=== PATIENT | male | born 1950 | race Caucasian/White ===

== ENCOUNTER 2017-05-26 11:45 | Inpatient (IN) | payer MEDICARE ==
[~2017-05-26] VITALS: Ht 177.8 cm; Wt 87.5 kg
[2017-05-26] VITALS (15 sets, daily range): BP systolic 102–145; BP diastolic 52–88
[~2017-05-26 11:45] MED LIST: CIPRO 500MG TA500 MG PO; FLAGYL500 M1 PO; LORTAB 5/500 501 TAB PO; ZOFRAN ODT4 MG PO
--- OUTSIDE RECORDS SUMMARY | 2017-05-26 12:15 | External Medical Summary Rpt | CCD ---
Demographics Preferred Language Wolof Marital Status Unknown Taoism Affiliation Unknown Race Unknown Ethnic Group Unknown Author Author , TY CRAWFORD Address Unknown Phone Immunization No patient found.
--- OUTSIDE RECORDS SUMMARY | 2017-05-26 12:15 | External Medical Summary Rpt | CCD ---
Demographics Preferred Language Romanian Marital Status Unknown Bahai Affiliation Unknown Race Unknown Ethnic Group Unknown Author Author , TY CRAWFORD Address Unknown Phone Immunization No patient found.
--- OUTSIDE RECORDS SUMMARY | 2017-05-26 12:15 | External Medical Summary Rpt | CCD ---
Author Author , TY Organization TY Address Unknown Phone [email or web address] Purpose Continuity of Care Document - 05-25-2017 through 2016 Results Labs Lab Lab Date Result Refere Interp Status Commen Order Detail nces retati t Range on Amylase ser/plas (05-25-2017 13:19) Amylase = 46 25-115 complet 017 U/L ed ser/chepe 13:19 s Cardiac enzymes (05-25-2017 13:19) Serum = 0.6 0-4.0 complet or 017 U/L ed plasma 13:19 creatin e kinase MB (CK-M Serum = 0.5 0.0-3.6 complet or 017 ng/mL ed plasma 13:19 creatin e kinase MB measu Serum = 79 39-308 complet or 017 U/L ed plasma 13:19 creatin e kinase measure m Serum < 0.02 0.00-0. complet or 017 ng/mL 06 ed plasma 13:19 troponi n i.cardi ac measu Comprehensive metabolic panel (05-25-2017 13:19) Serum = 1.0 1.1-1.8 complet or 017 ed plasma 13:19 albumin /globul in mass ra Serum = 3.3 3.4-5.0 complet or 017 gm/dL ed plasma 13:19 albumin measure ment (mas Serum = 72 46-116 complet or 017 U/L ed plasma 13:19 alkalin e phospha tase ibrahima Serum = 0.6 0.2-1.0 complet or 017 mg/dL ed plasma 13:19 total bilirub in measure m Serum = 15 7-18 complet or 017 mg/dL ed plasma 13:19 urea nitroge n measure men Serum = 8.8 8.5-10. complet or 017 mg/dL 1 ed plasma 13:19 calcium measure ment (mas Serum = 107 98-107 complet or 017 mmoL/L ed plasma 13:19 chlorid e measure ment (mo Carbon = 30 21.0-32 complet dioxide 017 mmoL/L .0 ed 13:19 measure ment Protein = 6.7 6.4-8.2 complet total 017 gm/dL ed ser/chepe 13:19 s ALT = 22 12-78 complet (SGPT) 017 U/L ed ser/chepe 13:19 s Serum = 16 15-37 complet or 017 U/L ed plasma 13:19 asparta te aminotr ansfera Serum = 141 136-145 complet sodium 017 mmoL/L ed measure 13:19 ment Serum = 3.9 3.5-5.1 complet potassi 017 mmoL/L ed um 13:19 measure ment Serum = 103 74-106 complet or 017 mg/dL ed plasma 13:19 glucose measure ment (mas Serum = 3.4 1.3-3.2 complet globuli 017 gm/dL ed n 13:19 measure ment (mass/v olume) Estimat = 97 >60 complet ed 017 ML/MIN ed glomeru 13:19 lar filtrat ion rate (GF Comment: REFERENCE RANGE: >60 ML/MIN/1.73 SQUARE METERS Comment: If this patient is -[place], then multiply the Comment: result by 1.210. Estimat = 112 50-200 complet ion of 017 ML/MIN ed creatin 13:19 ine renal clearan ce Serum = 0.8 0.70-1. complet or 017 mg/dL 30 ed plasma 13:19 creatin ine measure ment ( Lipase measurement (05-25-2017 13:19) Lipase = 87 73-393 complet measure 017 U/L ed ment 13:19 CBC w auto diff (05-25-2017 13:19) Blood = 7.0 4.8-10. complet leukocy 017 K/MM3 8 ed tahira 13:19 count (number /volume ) Automat = 12.3 11.5-17 complet ed 017 % .5 ed erythro 13:19 cyte distrib ution width Red = 5.33 4.6-6.2 complet blood 017 M/mm3 ed cell 13:19 count Blood = 193 142-424 complet platele 017 K/mm3 ed t count 13:19 Automat = 9.2 7.4-10. complet ed 017 fl 4 ed blood 13:19 platele t mean volume ibrahima Kane % = 6.4 % 1.7-9.3 complet 017 ed 13:19 Absolut = 0.5 0.1-1.0 complet e 017 K/mm3 ed monocyt 13:19 e count Automat = 89.1 82.2-97 complet ed 017 fl .8 ed erythro 13:19 cyte mean corpusc ular v Automat = 32.6 31.8-35 complet ed 017 g/dl .4 ed erythro 13:19 cyte mean corpusc ular h Mean = 29.0 27-31.2 complet corpusc 017 pg ed ular 13:19 hemoglo bin (MCH) determ Lymphoc = 21.8 10-50 complet yte 017 % ed count, 13:19 blood, automat ed Absolut = 1.5 0.7-4.5 complet e 017 K/mm3 ed lymphoc 13:19 yte count Blood = 15.5 14.1-18 complet hemoglo 017 g/dL .0 ed bin 13:19 measure ment (mass/v olum Blood = 47.5 42.0-52 complet hematoc 017 % .0 ed rit 13:19 (volume fractio n) Granulo = 68.3 37.0-80 complet cyte 017 % .0 ed percent 13:19 age Blood = 4.8 1.3-8.0 complet granulo 017 K/mm3 ed cytes 13:19 automat ed count (numb Automat = 3.0 % 0.1-12. complet ed 017 0 ed blood 13:19 eosinop hils/10 0 leukocy t Automat 05-25-2 = 0.2 0.0-0.4 complet ed 017 K/mm3 ed blood 13:19 eosinop hil count Baso % 2 = 0.4 % 0.1-2.0 complet 017 ed 13:19 Automat 2 = 0.0 0-0.2 complet ed 017 K/MM3 ed blood 13:19 basophi l count (count/ vo
--- OUTSIDE RECORDS SUMMARY | 2017-05-26 12:15 | External Medical Summary Rpt | CCD ---
Author Author , TY Organization TY Address Unknown Phone [email or web address] Purpose Continuity of Care Document - 05-25-2017 [...] SQUARE METERS Comment: If this patient is -[place], then multiply the Comment: result by 1.210. [...] blood 13:19 platele t mean volume ibrahima [place] % = 6.4 % 1.7-9.3 complet 017 [...]
--- OUTSIDE RECORDS SUMMARY | 2017-05-26 12:15 | External Medical Summary Rpt ---
Author Author [employer], [employer] Organization [employer] Address Unknown Phone Unavailable Results CBC W Auto Differential panel in Blood Observa Value Referen Units Interpr Notes Date tion ce etation Range Basophils 0 - 0.2 K/MM3 Normal No May 25 informati 2016 1:19 [#/volume on in PM ] in source Blood by data Automated count Basophils 0.1 - 2.0 % Normal No May 25 informati 2016 1:19 leukocyte on in PM s in source Blood by data Automated count Eosinophi 0.0 - 0.4 K/mm3 Normal No May 25 ls informati 2016 1:19 [#/volume on in PM ] in source Blood by data Automated count Eosinophi 0.1 - % Normal No May 25 ls/100 12.0 informati 2016 1:19 leukocyte on in PM s in source Blood by data Automated count Granulocy 1.3 - 8.0 K/mm3 Normal No May 25 [place] informati 2016 1:19 [#/volume on in PM ] in source Blood by data Automated count Granulocy 37.0 - % Normal No May 25 [place]/100 80.0 informati 2016 1:19 leukocyte on in PM s in source Blood by data Automated count Hematocri 42.0 - % Normal No May 25 t [Volume 52.0 informati 2016 1:19 on in PM Fraction] source of Blood data Hemoglobi 14.1 - g/dL Normal No May 25 n 18.0 informati 2016 1:19 [Mass/vol on in PM ume] in source Blood data Lymphocyt 0.7 - 4.5 K/mm3 Normal No May 25 es informati 2016 1:19 [#/volume on in PM ] in source Unspecifi data ed specimen by Automated count Lymphocyt 10 - 50 % Normal No May 25 es informati 2016 1:19 [#/volume on in PM ] in source Unspecifi data ed specimen by Automated count Erythrocy 27 - 31.2 pg Normal No May 25 te mean informati 2016 1:19 corpuscul on in PM ar source hemoglobi data n [Entitic mass] Erythrocy 31.8 - g/dl Normal No May 25 te mean 35.4 informati 2016 1:19 corpuscul on in PM ar source hemoglobi data n concentra tion [Mass/vol ume] by Automated count Erythrocy 82.2 - fl Normal No May 25 te mean 97.8 informati 2016 1:19 corpuscul on in PM ar volume source [Entitic data volume] by Automated count Monocytes 0.1 - 1.0 K/mm3 Normal No May 1 informati 2016 1:19 [#/volume on in PM ] in source Blood by data Automated count Monocytes 1.7 - 9.3 % Normal No May 25 / informati 2017 1:19 leukocyte on in PM s in source Blood by data Automated count Platelet 7.4 - fl Normal No May 25 mean 10.4 informati 2016 1:19 volume on in PM [Entitic source volume] data in Blood by Automated count Platelets 142 - 424 K/mm3 Normal No May 1 informati 2016 1:19 [#/volume on in PM ] in source Blood data Erythrocy 4.6 - 6.2 M/mm3 Normal No May 1 [place] informati 2017 1:19 [#/volume on in PM ] in source Amniotic data fluid Erythrocy 11.5 - % Normal No May 25 te 17.5 informati 2016 1:19 distribut on in PM ion width source [Entitic data volume] by Automated count Leukocyte 4.8 - K/MM3 Normal No May 1 s 10.8 informati 2016 1:19 [#/volume on in PM ] in source Blood data
[2017-05-26 12:41] LABS: STOOL OCCULT BLOOD POSITIVE (NEG)
[2017-05-26 12:59] LABS: HEMOGLOBIN 12.2 g/dL (14.1-18.0); LYMPH # 0.8 K/mm3 (0.7-4.5); LYMPH % 10.1 % (10-50)
[2017-05-26 13:13] LABS: BUN 36 mg/dL (7-18); GFR (ESTIMATED) 113 ML/MIN (>60)
--- NOTE | 2017-05-26 13:13 | Emergency Room Report ---
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 DIZZINESS /WEAKNESS HYPOTENSIVE IN ROUTE(SBP 90'S) GIVEN 325ML BOLUS DURING ROUTE. Onset of symptoms date/time:/ or onset unknown for:MEDICAL HX UNKNOWN Treatment Prior to Arrival: GIVEN BOLUS OF FLUIDS IN ROUTE SBP BETTER. 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 N Clinical Suspician of Infection? N Mental Status: 1 - Regular (Normal Baseline) Sepsis Risk:Low Sepsis Risk Have you (or family members/close friends) recently traveled outside the [place]? N If Yes, where/when: Have you had exposure to infectious disease within the past month? N TB? Other? Specify: Patient seen in ER yesterday for epigastric pain, CT and labs normal, d/c home. This AM had one episode of BRBPR and one episode of hematemesis, also bright red. He has crampy abdominal pain, nonradiating. 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 He denies dizziness now but felt lightheaded earlier. He denies any prior GI problems. Has hx appy remotely. ALLERGIES Coded Allergies: No Known Allergies (05/25/17) Home Medications Reported Medications MECLIZINE HCL (Meclizine Hydrochloride) 12.5 MG PO TIDP PRN DIZZINESS Atorvastatin Calcium (Atorvastatin 40MG) 40 MG PO QHS Aspirin (Aspir-Fouzia) 325 MG PO DAILY History Medical History General CAD? No Angina: No NE: No Hypertension? Yes Hyperlipidemia? Yes CHF? No DVT? No PE? No COPD? No Asthma? No Anemia? No GERD? No Gastric ulcers? No GI Bleed? No Hernia? No Thyroid Problems? No Hypothyroidism? No CVA? No Seizures? No Diabetes? No Renal Insuffiency? No End Stage Renal Disease? No UTI? No Stones? No BPH? No GB Disease: No Nephritic Syndrome? No Asplenia? No Hepatitis? No Sickle Cell Disease? No Arthritis? No Migraines? No Cataracts? No Glaucoma? No MRSA? No HIV? No TB? No Anxiety? No Depression? No Cancer? Yes Site: SKIN More? No Immunization Hx DT/Tetanus 1-4 YRS Surgical Hx Previous Surgery?Y APPY Social History Smoking Hx Smoker: Never Smoker Tobacco: No Alcohol Alcohol: No Review of Systems All Other Systems Reviewed and Negative Gastrointestinal see HPI (CT neg yesterday in ER) Physical Exam Vital Signs Vital Signs Date Time Temp Pulse Resp B/P Pulse O2 O2 Flow FiO2 Ox Delivery Rate 05/26 1437 99 05/26 1420 98.9 84 18 119/77 05/26 1337 98.1 95 18 113/65 99 05/26 1221 76 20 117/77 98 05/26 1146 98.1 80 20 112/86 99 General Appearance normal appearance, WD/WN, no apparent distress Eye Exam - bilateral eye normal exam, bilateral eye PERRL, bilateral eye EOMI Neck normal inspection, non-tender, supple, full range of motion Respiratory Status Yes: trachea midline, chest symmetrical, non tender chest. No: respiratory distress, tender on palpation, use of accessory muscles, pain on inspiration, pain on expiration, productive cough, non productive cough. Lung Sounds bilateral: normal breath sounds, lungs clear. 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 Neurologic alert, normal exam, no motor/sensory deficits, oriented x 3 Glascow Coma Scale Glascow Coma Scale Response Value EYE response: 4 Spontaneously 4 MOTOR response: 6 OBEYS 6 VERBAL response: 5 Oriented & Converses 5 Total 15 Skin intact, normal color, warm/dry Medical Decision Making LABS/Meds/Orders Pt receiving controlled substance in ED? No Results/Orders Laboratory Tests 05/26/17 1220: Stool Occult Blood POSITIVE 05/26/17 1203: MCH 29.2 05/26/17 1203: Sodium 142, Potassium 4.6, Chloride 110 H, Carbon Dioxide 27, BUN 36 H, Creatinine 0.7 L, Estimated Creat Clear 128, Estimated GFR (MDRD) 113, Glucose 125 H, Calcium 8.2 L, Total Bilirubin 0.5, AST 10 L, ALT 16, Alkaline Phosphatase 58, Creatine Kinase 37 L, CK-MB (CK-2) Rel Index 1.4, CK and CKMB Interp < 0.5, Troponin I 0.02, Total Protein 5.3 L, Albumin 2.7 L, Globulin 2.6, Albumin/Globulin Ratio 1.0 L, PT 10.9, INR 1.01, APTT 24.0, WBC 7.6, RBC 4.19 L, Hgb 12.2 L, Hct 37.6 L, MCV 89.7, RDW 12.3, Plt Count 183, MPV 9.4, Gran % 85.6 H, Gran # 6.5, Total Counted 100, Lymphocytes % 10.1, Monocytes % 3.7, Eosinophils % 0.4, Basophils % 0.2, Neutrophils 87 H, Lymphocytes (Manual) 9 L, Lymphocytes # 0.8, Monocytes (Manual) 4, Monocytes # 0.3, Eosinophils # 0.0, Basophils # 0.0, Platelet Estimate NORMAL, PUBS MCHC 32.6, Antibody Screen NEGATIVE, Miscellaneous Test POSITIVE Current Medication Orders Sig/Chago Start time Last Medication Dose Route Stop Time Status Admin Epinephrine HCl 0 .STK-MED ONE 05/26 1440 DC .ROUTE Epinephrine HCl 0 .STK-MED ONE 05/26 1437 DC .ROUTE Sodium Chloride 1,000 ML .STK-MED ONE 05/26 1422 DC IV Lactated Ringer's 1,000 ML .STK-MED ONE 05/26 1406 DC IV Sodium Chloride 200 ML .STK-MED ONE 05/26 1347 DC IV Ondansetron HCl 4 MG Q6HP PRN 05/26 1345 AC IV Sodium Chloride 1,000 ML .Q25H 05/26 1345 AC IV Sodium Chloride 10 ML PRN PRN 05/26 1345 AC IV Sodium Chloride 10 ML PRN PRN 05/26 1345 AC IV Ondansetron HCl 4 MG ONCE ONE 05/26 1200 DC 05/26 IV 05/26 1201 1217 Pantoprazole Sodium 40 MG ONCE ONE 05/26 1200 DC 05/26 IV 05/26 1201 1217 Sodium Chloride 10 ML PRN PRN 05/26 1200 AC IV 05/27 1152 Sodium Chloride 10 ML ONCE ONE 05/26 1200 DC 05/26 IV 05/26 1201 1218 Sodium Chloride 1,000 ML .Q1H1M 05/26 1200 DC 05/26 IV 05/26 1300 1219 Sodium Chloride 10 ML PRN PRN 05/26 1200 AC IV 05/27 1152 Pantoprazole Sodium 0 .STK-MED ONE 05/26 1157 DC IV Ondansetron HCl 0 .STK-MED ONE 05/26 1156 DC .ROUTE Orders Procedure Date/time Status CBC WITH AUTO DIFF 05/27 0600 Active BASIC METABOLIC PROFILE 05/27 0600 Active ELECTROCARDIOGRAM REQUEST 05/26 1329 Active Decision to admit 05/26 1326 Active 12 LEAD EKG-CRISTINSON (INITIAL) 05/26 1325 Active PARTIAL THROMBOPLASTIN TIME 05/26 1315 Complete PROTHROMBIN TIME 05/26 1315 Complete STOOL OCCULT BLOOD 05/26 1237 Complete CROSSMATCH 05/26 1203 Complete DIFFERENTIAL-WBC 05/26 1203 Complete IV SALINE LOCK 05/26 1153 Active TYPE FOR CROSSMATCH 05/26 1153 Complete CBC WITH AUTO DIFF 05/26 1153 Complete CARDIAC ENZYMES 05/26 1153 Complete CHEM 12 PROFILE 05/26 1153 Complete BLOOD BANK REQUEST FOR FINNISH RUBBER 05/26 UNK Complete ADMIT PATIENT 05/26 UNK Active PULSE OXIMETRY REQUEST 05/26 UNK Active VITAL SIGNS 05/26 UNK Active 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 of ischemic chgs, no ectopy, normal QRS, normal CO, normal EKG (NSR 68) Consult MD Physician Consult 1 Consult/PCP Dr. Gaviria requesting to go ahead and hang blood. Lab is preparing 2uPRBC's. Time Called 1313 Reason Surgical eval/care Physician Consult 2 Consult/PCP Dr. Dawson in agreement to admit, hang blood emergently; admit now. Time Called [address] Dawson paged at request of Dr. Gaviria. Progress ED Progress Notes Date 05/26/[address] Gaviria in ED at bedside. Departure Departure Time of Disposition 1340 Disposition Still a Patient Clinical Impression Primary Impression: GI bleed Qualifiers: GI bleed type/associated pathology: unspecified gastrointestinal hemorrhage type Qualified Code: K92.2 - Gastrointestinal hemorrhage, unspecified Condition STABLE Referrals Sai Dawson MD (Family) ED Critical Care Critical Care Yes Time spent < 30 min Vital system(s) involved: Shock (Hemorrhagic) I was present at bedside for Coordinating pt's care, During my initial exam, Reviewing lab results, Reviewing old records, Discussing pt condition, For re- examinations at 1957
--- NOTE | 2017-05-26 13:13 | Emergency Room Report ---
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 DIZZINESS /WEAKNESS HYPOTENSIVE IN ROUTE(SBP 90'S) GIVEN 325ML BOLUS DURING ROUTE. Onset of symptoms date/time:/ or onset unknown for:MEDICAL HX UNKNOWN Treatment Prior to Arrival: GIVEN BOLUS OF FLUIDS IN ROUTE SBP BETTER. 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 N Clinical Suspician of Infection? N Mental Status: 1 - Regular (Normal Baseline) Sepsis Risk:Low Sepsis Risk Have you (or family members/close friends) recently traveled outside the [place]? N If Yes, where/when: Have you had exposure to infectious disease within the past month? N TB? Other? Specify: Patient seen in ER yesterday for epigastric pain, CT and labs normal, d/c home. This AM had one episode of BRBPR and one episode of hematemesis, also bright red. He has crampy abdominal pain, nonradiating. He had hypotension per EMS with bolus of NS given [employer] with normalization of BP. He denies dizziness now but felt lightheaded earlier. He denies any prior GI problems. Has hx appy remotely. ALLERGIES Coded Allergies: No Known Allergies (05/25/17) Home Medications Reported Medications MECLIZINE HCL (Meclizine Hydrochloride) 12.5 MG PO TIDP PRN DIZZINESS Atorvastatin Calcium (Atorvastatin 40MG) 40 MG PO QHS Aspirin (Aspir-Fouzia) 325 MG PO DAILY History Medical History General CAD? No Angina: No MD: No Hypertension? Yes Hyperlipidemia? Yes CHF? No DVT? No PE? No COPD? No Asthma? No Anemia? No GERD? No Gastric ulcers? No GI Bleed? No Hernia? No Thyroid Problems? No Hypothyroidism? No CVA? No Seizures? No Diabetes? No Renal Insuffiency? No End Stage Renal Disease? No UTI? No Stones? No BPH? No GB Disease: No Nephritic Syndrome? No Asplenia? No Hepatitis? No Sickle Cell Disease? No Arthritis? No Migraines? No Cataracts? No Glaucoma? No MRSA? No HIV? No TB? No Anxiety? No Depression? No Cancer? Yes Site: SKIN More? No Immunization Hx DT/Tetanus 1-4 YRS Surgical Hx Previous Surgery?Y APPY Social History Smoking Hx Smoker: Never Smoker Tobacco: No Alcohol Alcohol: No Review of Systems All Other Systems Reviewed and Negative Gastrointestinal see HPI (CT neg yesterday in ER) Physical Exam Vital Signs Vital Signs Date Time Temp Pulse Resp B/P Pulse O2 O2 Flow FiO2 Ox Delivery Rate 05/26 1437 99 05/26 1420 98.9 84 18 119/77 05/26 1337 98.1 95 18 113/65 99 05/26 1221 76 20 117/77 98 05/26 1146 98.1 80 20 112/86 99 General Appearance normal appearance, WD/WN, no apparent distress Eye Exam - bilateral eye normal exam, bilateral eye PERRL, bilateral eye EOMI Neck normal inspection, non-tender, supple, full range of motion Respiratory Status Yes: trachea midline, chest symmetrical, non tender chest. No: respiratory distress, tender on palpation, use of accessory muscles, pain on inspiration, pain on expiration, productive cough, non productive cough. Lung Sounds bilateral: normal breath sounds, lungs clear. 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 Neurologic alert, normal exam, no motor/sensory deficits, oriented x 3 Glascow Coma Scale Glascow Coma Scale Response Value EYE response: 4 Spontaneously 4 MOTOR response: 6 OBEYS 6 VERBAL response: 5 Oriented & Converses 5 Total 15 Skin intact, normal color, warm/dry Medical Decision Making LABS/Meds/Orders Pt receiving controlled substance in ED? No Results/Orders Laboratory Tests 05/26/17 1220: Stool Occult Blood POSITIVE 05/26/17 1203: MCH 29.2 05/26/17 1203: Sodium 142, Potassium 4.6, Chloride 110 H, Carbon Dioxide 27, BUN 36 H, Creatinine 0.7 L, Estimated Creat Clear 128, Estimated GFR (MDRD) 113, Glucose 125 H, Calcium 8.2 L, Total Bilirubin 0.5, AST 10 L, ALT 16, Alkaline Phosphatase 58, Creatine Kinase 37 L, CK-MB (CK-2) Rel Index 1.4, CK and CKMB Interp < 0.5, Troponin I 0.02, Total Protein 5.3 L, Albumin 2.7 L, Globulin 2.6, Albumin/Globulin Ratio 1.0 L, PT 10.9, INR 1.01, APTT 24.0, WBC 7.6, RBC 4.19 L, Hgb 12.2 L, Hct 37.6 L, MCV 89.7, RDW 12.3, Plt Count 183, MPV 9.4, Gran % 85.6 H, Gran # 6.5, Total Counted 100, Lymphocytes % 10.1, Monocytes % 3.7, Eosinophils % 0.4, Basophils % 0.2, Neutrophils 87 H, Lymphocytes (Manual) 9 L, Lymphocytes # 0.8, Monocytes (Manual) 4, Monocytes # 0.3, Eosinophils # 0.0, Basophils # 0.0, Platelet Estimate NORMAL, PUBS MCHC 32.6, Antibody Screen NEGATIVE, Miscellaneous Test POSITIVE Current Medication Orders Sig/Chago Start time Last Medication Dose Route Stop Time Status Admin Epinephrine HCl 0 .STK-MED ONE 05/26 1440 DC .ROUTE Epinephrine HCl 0 .STK-MED ONE 05/26 1437 DC .ROUTE Sodium Chloride 1,000 ML .STK-MED ONE 05/26 1422 DC IV Lactated Ringer's 1,000 ML .STK-MED ONE 05/26 1406 DC IV Sodium Chloride 200 ML .STK-MED ONE 05/26 1347 DC IV Ondansetron HCl 4 MG Q6HP PRN 05/26 1345 AC IV Sodium Chloride 1,000 ML .Q25H 05/26 1345 AC IV Sodium Chloride 10 ML PRN PRN 05/26 1345 AC IV Sodium Chloride 10 ML PRN PRN 05/26 1345 AC IV Ondansetron HCl 4 MG ONCE ONE 05/26 1200 DC 05/26 IV 05/26 1201 1217 Pantoprazole Sodium 40 MG ONCE ONE 05/26 1200 DC 05/26 IV 05/26 1201 1217 Sodium Chloride 10 ML PRN PRN 05/26 1200 AC IV 05/27 1152 Sodium Chloride 10 ML ONCE ONE 05/26 1200 DC 05/26 IV 05/26 1201 1218 Sodium Chloride 1,000 ML .Q1H1M 05/26 1200 DC 05/26 IV 05/26 1300 1219 Sodium Chloride 10 ML PRN PRN 05/26 1200 AC IV 05/27 1152 Pantoprazole Sodium 0 .STK-MED ONE 05/26 1157 DC IV Ondansetron HCl 0 .STK-MED ONE 05/26 1156 DC .ROUTE Orders Procedure Date/time Status CBC WITH AUTO DIFF 05/27 0600 Active BASIC METABOLIC PROFILE 05/27 0600 Active ELECTROCARDIOGRAM REQUEST 05/26 1329 Active Decision to admit 05/26 1326 Active 12 LEAD EKG-CRISTINSON (INITIAL) 05/26 1325 Active PARTIAL THROMBOPLASTIN TIME 05/26 1315 Complete PROTHROMBIN TIME 05/26 1315 Complete STOOL OCCULT BLOOD 05/26 1237 Complete CROSSMATCH 05/26 1203 Complete DIFFERENTIAL-WBC 05/26 1203 Complete IV SALINE LOCK 05/26 1153 Active TYPE FOR CROSSMATCH 05/26 1153 Complete CBC WITH AUTO DIFF 05/26 1153 Complete CARDIAC ENZYMES 05/26 1153 Complete CHEM 12 PROFILE 05/26 1153 Complete BLOOD BANK REQUEST FOR RADIOLOGICAL METALLURGIST 05/26 UNK Complete ADMIT PATIENT 05/26 UNK Active PULSE OXIMETRY REQUEST 05/26 UNK Active VITAL SIGNS 05/26 UNK Active TRIALS MANAGER 05/26 UNK Active IV SALINE LOCK 05/26 UNK Active CODE STATUS 05/26 UNK Active BLOOD TRANSFUSION ORDER 05/26 UNK Active PATIENT ACTIVITY ORDER 05/26 UNK Active PHYSICIANS CONSULT 05/26 UNK Active CM/EKG CM/EKG EKG rate, NSR, rhythm, no evid. of ischemic chgs, no ectopy, normal QRS, normal MT, normal EKG (NSR 68) Consult MD Physician Consult 1 Consult/PCP Dr. Gaviria requesting to go ahead and hang blood. Lab is preparing 2uPRBC's. Time Called 1313 Reason Surgical eval/care Physician Consult 2 Consult/PCP Dr. Dawson in agreement to admit, hang blood emergently; admit now. Time Called [address] Dawson paged at request of Dr. Gaviria. Progress ED Progress Notes Date 05/26/[address] Gaviria in ED at bedside. Departure Departure Time of Disposition 1340 Disposition Still a Patient Clinical Impression Primary Impression: GI bleed Qualifiers: GI bleed type/associated pathology: unspecified gastrointestinal hemorrhage type Qualified Code: K92.2 - Gastrointestinal hemorrhage, unspecified Condition STABLE Referrals Sai Dawson MD (Family) ED Critical Care Critical Care Yes Time spent < 30 min Vital system(s) involved: Shock (Hemorrhagic) I was present at bedside for Coordinating pt's care, During my initial exam, Reviewing lab results, Reviewing old records, Discussing pt condition, For re- examinations at 1957
--- OUTSIDE RECORDS SUMMARY | 2017-05-26 13:31 | External Medical Summary Rpt | CCD ---
Author Author , TY Organization TY Address Unknown Phone [email or web address] Purpose Continuity of Care Document - 05-25-2017 through 2016 Results Labs Lab Lab Date Result Refere Interp Status Commen Order Detail nces retati t Range on Fecal occult blood test (05-26-2017 12:20) Stool POSITIV NEG complet occult 017 E ed blood 12:20 POSITIV test on E L first specime Hemoglobin.gastrointestinal [Presence] in Stool (05-26-2017 12:20) Hemoglo POSITIV NEG complet bin.gas 017 E ed trointe 12:20 stinal [Presen ce] in Stool --1st specime n Cardiac enzymes (05-26-2017 12:03) Serum < 0.5 0.0-3.6 complet or 017 ng/mL ed plasma 12:03 creatin e kinase MB measu Serum = 37 39-308 complet or 017 U/L ed plasma 12:03 creatin e kinase measure m Serum = 0.02 0.00-0. complet or 017 ng/mL 06 ed plasma 12:03 troponi n i.cardi ac measu Serum = 1.4 0-4.0 complet or 017 U/L ed plasma 12:03 creatin e kinase MB (CK-M Comprehensive metabolic panel (05-26-2017 12:03) Serum = 1.0 1.1-1.8 complet or 017 ed plasma 12:03 albumin /globul in mass ra Serum = 2.7 3.4-5.0 complet or 017 gm/dL ed plasma 12:03 albumin measure ment (mas Serum = 58 46-116 complet or 017 U/L ed plasma 12:03 alkalin e phospha tase ibrahima Serum = 0.5 0.2-1.0 complet or 017 mg/dL ed plasma 12:03 total bilirub in measure m Serum = 36 7-18 complet or 017 mg/dL ed plasma 12:03 urea nitroge n measure men Serum = 8.2 8.5-10. complet or 017 mg/dL 1 ed plasma 12:03 calcium measure ment (mas Serum = 110 98-107 complet or 017 mmoL/L ed plasma 12:03 chlorid e measure ment (mo Carbon = 27 21.0-32 complet dioxide 017 mmoL/L .0 ed 12:03 measure ment Serum = 0.7 0.70-1. complet or 017 mg/dL 30 ed plasma 12:03 creatin ine measure ment ( Estimat = 128 50-200 complet ion of 017 ML/MIN ed creatin 12:03 ine renal clearan ce Estimat = 113 >60 complet ed 017 ML/MIN ed glomeru 12:03 lar filtrat ion rate (GF Comment: REFERENCE RANGE: >60 ML/MIN/1.73 SQUARE METERS Comment: If this patient is -Malian, then multiply the Comment: result by 1.210. Serum = 2.6 1.3-3.2 complet globuli 017 gm/dL ed n 12:03 measure ment (mass/v olume) Serum = 125 74-106 complet or 017 mg/dL ed plasma 12:03 glucose measure ment (mas Serum = 4.6 3.5-5.1 complet potassi 017 mmoL/L ed um 12:03 measure ment Serum = 142 136-145 complet sodium 017 mmoL/L ed measure 12:03 ment Serum = 10 15-37 complet or 017 U/L ed plasma 12:03 asparta te aminotr ansfera ALT = 16 12-78 complet (SGPT) 017 U/L ed ser/chepe 12:03 s Protein = 5.3 6.4-8.2 complet total 017 gm/dL ed ser/chepe 12:03 s Amylase ser/plas (05-25-2017 13:19) Amylase = 46 [...] SQUARE METERS Comment: If this patient is -Malian, then multiply the Comment: result by 1.210. [...] blood 13:19 platele t mean volume ibrahima [place] % = 6.4 % 1.7-9.3 complet 017 [...] 13:19 eosinop hils/10 0 leukocy t Automat = 0.2 0.0-0.4 complet ed 017 K/mm3 ed blood 13:19 eosinop hil count Baso % = 0.4 % 0.1-2.0 complet 017 ed 13:19 Automat = 0.0 0-0.2 complet ed 017 K/MM3 ed blood 13:19 basophi l count (count/ vo
--- OUTSIDE RECORDS SUMMARY | 2017-05-26 13:31 | External Medical Summary Rpt | CCD ---
Demographics Preferred Language Armenian Marital Status Unknown Roman Catholic Affiliation Unknown Race Unknown Ethnic Group Unknown Author Author , TY CRAWFORD Address Unknown Phone Immunization No patient found.
--- OUTSIDE RECORDS SUMMARY | 2017-05-26 13:31 | External Medical Summary Rpt | CCD ---
Demographics Preferred Language Chinese Marital Status Unknown Zoroastrianism Affiliation Unknown Race Unknown Ethnic Group Unknown Author Author , TY CRAWFORD Address Unknown Phone Immunization No patient found.
--- OUTSIDE RECORDS SUMMARY | 2017-05-26 13:31 | External Medical Summary Rpt | CCD ---
Author Author , TY Organization TY Address Unknown Phone [email or web address] Purpose Continuity of Care Document - 05-25-2017 [...] SQUARE METERS Comment: If this patient is -Libyan, then multiply the Comment: result by 1.210. [...] SQUARE METERS Comment: If this patient is -Libyan, then multiply the Comment: result by 1.210. [...] blood 13:19 platele t mean volume ibrahima [place] % = 6.4 % 1.7-9.3 complet 017 [...]
--- OUTSIDE RECORDS SUMMARY | 2017-05-26 13:32 | External Medical Summary Rpt ---
Author Author TY Hancock, [employer] Organization [employer] Address Unknown Phone Unavailable Results Hemoglobin.gastrointestinal [Presence] in Stool Observa Value Referen Units Interpr Notes Date tion ce etation Range Hemoglo POSITIV NEG No No No May 2 bin.gas E informa informa informa 2017 trointe tion in tion in tion in 12:20 stinal source source source PM [Presen data data data ce] in Stool --1st specime n CBC W Auto Differential panel in Blood Observa Value Referen Units Interpr Notes Date tion ce etation Range Basophils 0 - 0.2 K/MM3 Normal No May 25 informati 2016 1:19 [#/volume on in PM ] in source Blood by data Automated count Basophils 0.1 - 2.0 % Normal No May 1 informati 2016 1:19 leukocyte on in PM [...] 10 - 50 % Normal No May 1 es informati 2017 1:19 [#/volume on in PM [...] Monocytes 1.7 - 9.3 % Normal No Nov 1 /100 informati 2017 1:19 leukocyte on in PM s in source Blood by data Automated count Platelet 7.4 - fl Normal No May 1 mean 10.4 informati 2017 1:19 volume on in PM [Entitic source [...] Erythrocy 11.5 - % Normal No May 1 te 17.5 informati 2016 1:19 distribut on in PM ion width source [Entitic data volume] by Automated count Leukocyte 4.8 - K/MM3 Normal No May 1 s 10.8 informati 2016 1:19 [#/volume on in PM ] in source Blood data
[2017-05-26 13:46] LABS: ABO BLOOD TYPE A
[2017-05-26 13:47] LABS: NEUTROPHILS 87 % (42-76)
[2017-05-26 13:48] LABS: RH BLOOD TYPE POSITIVE
[2017-05-26 13:55] LABS: ANTIHUMAN GLOB CROSSMATCH COMPAT
[2017-05-26] MEDS ORDERED: HCTZ/TRIAMTEREN1 CAP PO ×2 (13:59→14:09)
--- NOTE | 2017-05-26 14:08 | CONSULT NOTE ---
Standard Demographics Patient Demo Date of Consultation: 05/26/17 Referring Provider: Luba Dawson MD Reason for Consultation: GI bleed PRIMARY DIAGNOSIS: Upper gastrointestinal hemorrhage Allergies: Coded Allergies: No Known Allergies (05/25/17) History of Present Illness Chief Complaint: bloody emesis History of Present Illness: This is a 67yo male seen in consultation after presenting to the ED with melena and hematemesis. He initially presented yesterday to the ED with vague abdominal pain. Evaluation revealed no definitive abnormality and he was discharged home. He returned today with the above-stated symptoms. He currently "feels OK". No history of PUD. No nausea or emesis prior to this episode. Past Medical History Reports: hypertension. Denies: CAD, congestive heart failure, COPD, peptic ulcer disease, asthma, diabetes mellitus. Surgical History Previous Surgery?Y APPY Allergies Coded Allergies: No Known Allergies (05/25/17) Medications: Active Scripts Acetaminophen W/ Hydrocodone (Lortab 5/500) 1-2 TAB PO Q4-6H PRN #10 Prov: 02/06/08 Ciprofloxacin HCl (Cipro 500MG TAB) 500 MG PO BID #20 TAB Prov: 05/25/17 Metronidazole (Flagyl) 500 MG PO TID #30 TAB Prov: 05/25/17 Ondansetron (Zofran 4MG Odt) 4 MG PO Q8HP PRN NAUSEA AND VOMITING #10 ODT Prov: 05/25/17 Additional medical history: hypercholesterolemia Family history Negative for: CAD, HTN, cancer. Smoking Hx Tobacco: No Smoker: Never Smoker Type: N/A Packs/day: N/A Are you/the child exposed to second-hand smoke: No Alcohol Alcohol: No Hx of Drug Use Drug Use? No Review of Systems Constitutional No: recent weight loss. Skin No: bruising. Immune/allergy No: anaphalaxis. Eyes No: blurry vision. ENT No: nose bleed. Respiratory No: pneumonia. Cardiovascular No: palpitations. GI Positive for: hematemeis, melena. No: dysphagia, rectal pain. (male) No: hematuria. Heme No: petechia. Endocrine No: polydipsia. Neurological No: change in LOC. Psychiatric No: anxious. Physical Exam VS/I&O Vital Signs Date Time Temp Pulse Resp B/P Pulse O2 O2 Flow FiO2 Ox Delivery Rate 05/26 1337 98.1 95 18 113/65 99 05/26 1221 76 20 117/77 98 05/26 1146 98.1 80 20 112/86 99 Exam General appearance no acute distress Respiratory no distress Cardiovascular regular rate and rhythm Abdomen soft Plan Plan: Impression: Hematemesis Melena Plan: PPI EGD at 1407
[2017-05-26] MEDS ORDERED: ATORVASTATIN 4040 MG PO (14:10)
[2017-05-26] MEDS ORDERED: MECLIZINE HYD12.5 MG PO (14:10)
[2017-05-26] MEDS ORDERED: MASON NATURAL100 MG PO (14:10)
[2017-05-26] MEDS ORDERED: SLO NIACIN500 MG PO (14:10)
[2017-05-26] MEDS ORDERED: ADULT LOW DOSE81 MG PO (14:11)
[2017-05-26] MEDS ORDERED: ALLEGRA ALLERG180 MG PO (14:11)
[2017-05-26] MEDS ORDERED: FLONASE 50 MCG16 GM (14:11)
--- NOTE | 2017-05-26 14:20 | HISTORY AND PHYSICAL REPORT ---
History and Physical ([facility]) Date of admission: 05/26/17 Chief complaint: Abdominal pain, vomiting blood, blood in stool History: History of Present Illness: Mr. Stuart is a 67yo male who was seen in the ER yesterday for epigastric pain. CT and labs were normal and he was sent home. This morning he had one episode of bright red blood in the stool and one episode of hematemesis, also bright red. He had crampy abdominal pain, nonradiating. EMS was called. 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 He denied dizziness once he arrived at the ER but felt lightheaded. He denies any prior GI problems. He was admitted for a surgical consult. Past Medical History: Medical History: CAD? No Angina: No UT: No Hypertension? Yes Hyperlipidemia? Yes CHF? No DVT? No PE? No COPD? No Asthma? No Anemia? No GERD? No Gastric ulcers? No GI Bleed? No Hernia? No Thyroid Problems? No Hypothyroidism? No CVA? No Seizures? No Diabetes? No Renal Insuffiency? No UTI? No Stones? No BPH? No GB Disease: No Nephritic Syndrome? No Asplenia? No Hepatitis? No Sickle Cell Disease? No Arthritis? No Migraines? No Cataracts? No Glaucoma? No MRSA? No HIV? No TB? No Anxiety? No Depression? No Cancer? Yes Site: SKIN More? No Additional hx: 1. Allergic Rhinitis Surgical history: Previous Surgery?Y APPY KNEE C-SCOPE MALIGNANT MELANOMA RUQ Medications: Reported Medications MECLIZINE HCL (Meclizine Hydrochloride) 12.5 MG PO TIDP PRN DIZZINESS Atorvastatin Calcium (Atorvastatin 40MG) 40 MG PO QHS Aspirin (Aspir-Fouzia) 325 MG PO DAILY Allergies: Coded Allergies: No Known Allergies (05/25/17) Family History: Family history: Postive for: cancer. Negative for: CAD, DM, HTN, stroke. Social History: Smoking Hx Tobacco: No Smoker: Never Smoker Type: N/A Packs/day: N/A Are you exposed to second hand No Alcohol: Alcohol: No Hx of Drug Use: Drug Use? No Review of Systems: Constitutional Positive for: fatigue, lethargy, malaise, weak. ENT Positive for: nasal congestion. No: sore throat. Cardiovascular No: chest pain, edema, palpitations. Respiratory No: shortness of air, productive cough (sputum), wheezing. GI Positive for: abdominal pain, hematemeis, melena, vomitting. (male) No: frequency, hematuria. Neurological Positive for: light headed. No: dizziness, syncope, weakness. Musculoskeletal No: extremity pain, joint pain, myalgias. Physical Exam: Vital signs: 1ST Vital Signs Result Date Time Pulse Ox 99 05/26 114 B/P 112/86 05/26 114 Temp 98.1 05/26 114 Pulse 80 05/26 1146 Resp 20 05/26 114 Exam: General appearance: alert, awake, no acute distress Eyes: EOM's w/normal ROM, PERRLA ENT: mucous membranes moist, nose normal, pharynx normal Neck: non-tender, full range of motion, supple Cardiovascular: regular rate & rhythm Respiratory: clear to auscultation ABD: non-distended, normal bowel sounds, no rebound, soft, no guarding, ttp in the epigastric area Extremities: no peripheral edema Musculoskeletal: equal muscle strength, motor intact, sensation intact Skin: normal color Neuro: normal mood/affect, oriented, speech clear Lab data: Labs: Laboratory Tests 05/26/17 1220: Stool Occult Blood POSITIVE 05/26/17 1203: MCH 29.2 05/26/17 1203: Sodium 142, Potassium 4.6, Chloride 110 H, Carbon Dioxide 27, BUN 36 H, Creatinine 0.7 L, Estimated Creat Clear 128, Estimated GFR (MDRD) 113, Glucose 125 H, Calcium 8.2 L, Total Bilirubin 0.5, AST 10 L, ALT 16, Alkaline Phosphatase 58, Creatine Kinase 37 L, CK-MB (CK-2) Rel Index 1.4, CK and CKMB Interp < 0.5, Troponin I 0.02, Total Protein 5.3 L, Albumin 2.7 L, Globulin 2.6, Albumin/Globulin Ratio 1.0 L, WBC 7.6, RBC 4.19 L, Hgb 12.2 L, Hct 37.6 L, MCV 89.7, RDW 12.3, Plt Count 183, MPV 9.4, Gran % 85.6 H, Gran # 6.5, Total Counted 100, Lymphocytes % 10.1, Monocytes % 3.7, Eosinophils % 0.4, Basophils % 0.2, Neutrophils 87 H, Lymphocytes (Manual) 9 L, Lymphocytes # 0.8, Monocytes (Manual) 4, Monocytes # 0.3, Eosinophils # 0.0, Basophils # 0.0, Platelet Estimate NORMAL, PUBS MCHC 32.6, Antibody Screen NEGATIVE, Miscellaneous Test POSITIVE Radiology results: Results: CXR pending CT from 05/25/17 1. Mild thickening of the descending and sigmoid colon. This may be related to nondistention or mild colitis Diagnosis(es): 1. GI bleed 2. Abdominal pain, acute, epigastric 3. Colitis 4. Stomach ulcer Plan: Patient has been seen by Dr. Gaviria who performed an EGD showing a large ulcer in the antrum. It was not actively bleeding but had been bleeding so he took biopsies and injected it with epi. He started him on carafate, protonix, and clear liquids. He will continue to follow patient. at 1269
--- NOTE | 2017-05-26 15:01 | Operative Note ---
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 Monitored anesthesia care ensued after he was transferred to the LEFT lateral decubitus position. The gastroscope was advanced. The stomach was entered. A small to moderate amount of old blood was noted throughout the gastric lumen. No sign of active bleeding or "fresh blood" was seen. A large crater ulcer within the gastric antrum was visualized. No visible vessel or ongoing hemorrhage was seen. Some clot was noted within the base and a fairly large amount of fibrinous exudate was seen. Biopsies along the ridge/margin were obtained. 10 mL of epinephrine was then injected in multiple quadrants around the crater ulcer. Prior to this maneuver, the pylorus was intubated. No duodenal ulcerations were seen. The gastroscope was carefully removed and the patient was transferred to recovery. EBL (ml): 1 Anesthesia: Monitored anesthesia care Complications: No immediate Specimens: Antral ulcer biopsies Disposition Disposition: Stable to recovery from where he will be transferred back to the floor. at 1500
[2017-05-26] MEDS ORDERED: ASPIR-TRIN325 MG PO (15:36)
--- NOTE | 2017-05-26 16:32 | RADIOLOGY REPORT PS360 ---
CHEST-PORTABLE HISTORY: GI bleed pre op GI bleed ORDERING PHYSICIAN: Sai Dawson MD PATIENT AGE: 67 years COMPARISON: None available FINDINGS: The cardiomediastinal silhouette and pulmonary vascularity are within normal limits. The lungs are clear without infiltrates, suspicious nodules, or pleural effusions. No acute bony abnormalities. IMPRESSION: Negative chest, no acute finding
[2017-05-27 03:33] VITALS: BP 117/64
--- NOTE | 2017-05-27 06:35 | SURGEON PROGRESS NOTE ---
Subjective data Subjective data: Resting Objective data Vitals,I&O,and Labs: Vital signs, intake and output,and available lab data for the last 24 hours is as noted below. Vital Signs Date Time Temp Pulse Resp B/P Pulse O2 O2 Flow FiO2 Ox Delivery Rate 05/27 0333 98.0 71 18 117/64 94 ROOM AIR 05/26 2337 98.4 75 20 104/66 95 ROOM AIR 05/26 2139 99.1 71 20 109/67 96 05/26 1935 99.1 71 20 111/63 97 05/26 1835 98.7 83 18 109/67 96 05/26 1735 98.6 64 18 122/77 98 05/26 1705 98.6 69 18 123/63 96 05/26 1635 98.6 71 18 116/75 95 05/26 1620 98.5 66 18 130/75 99 05/26 1605 98.5 58 18 128/52 99 05/26 1551 98.4 55 18 145/79 97 ROOM AIR 05/26 1550 98.4 61 18 102/88 05/26 1550 98.4 61 18 102/88 98 05/26 1535 98.4 55 18 145/79 97 05/26 1535 98.4 55 18 145/79 97 05/26 1512 55 16 144/82 05/26 1511 57 16 145/77 05/26 1501 98.0 56 16 140/79 96 OXYGEN 05/26 1450 98.9 65 16 136/61 05/26 1437 99 05/26 1420 98.9 84 18 119/77 05/26 1337 98.1 95 18 113/65 99 05/26 1221 76 20 117/77 98 05/26 1146 98.1 80 20 112/86 99 05/26 1500 05/26 2300 05/27 0700 Intake Total 350 1944.7 231 Output Total Balance 350 1944.7 231 Intake, IV 350 804.7 231 Intake, Oral 1140 Output, Stool Patient 86.184 kg 87.544 kg Weight Laboratory Tests Test Result Date Time Chemistry Sodium (mmoL/L) 142 05/26 1203 Potassium (mmoL/L) 4.6 05/26 1203 Chloride (mmoL/L) 110 05/26 1203 Carbon Dioxide (mmoL/L) 27 05/26 1203 BUN (mg/dL) 36 11/02 1203 Creatinine (mg/dL) 0.7 05/26 1203 Estimated Creat Clear (ML/MIN) 128 05/26 1203 Estimated GFR (MDRD) (ML/MIN) 113 05/26 1203 Glucose (mg/dL) 125 05/26 1203 Calcium (mg/dL) 8.2 05/26 1203 Total Bilirubin (mg/dL) 0.5 05/26 1203 AST (U/L) 10 05/26 120 ALT (U/L) 16 05/26 1203 Alkaline Phosphatase (U/L) 58 05/26 1203 Creatine Kinase (U/L) 37 05/26 1203 CK-MB (CK-2) Rel Index (U/L) 1.4 05/26 1203 CK and CKMB Interp (ng/mL) < 0.5 05/26 1203 Troponin I (ng/mL) 0.02 05/26 1203 Total Protein (gm/dL) 5.3 05/26 1203 Albumin (gm/dL) 2.7 05/26 1203 Globulin (gm/dL) 2.6 05/26 1203 Albumin/Globulin Ratio 1.0 05/26 1203 Coagulation PT (SECONDS) 10.9 05/26 1203 INR 1.01 05/26 1203 APTT (SECONDS) 24.0 05/26 1203 Hematology WBC (K/MM3) 7.6 05/26 1203 RBC (M/mm3) 4.19 05/26 1203 Hgb (g/dL) 12.0 05/26 2058 Hct (%) 35.1 05/26 2058 MCV (fl) 89.7 05/26 1203 RDW (%) 12.3 05/26 1203 Plt Count (K/mm3) 183 05/26 1203 MPV (fl) 9.4 05/26 1203 Gran % (%) 85.6 05/26 1203 Gran # (K/mm3) 6.5 05/26 1203 Total Counted (#CELLS) 100 05/26 1203 Lymphocytes % (%) 10.1 05/26 1203 Monocytes % (%) 3.7 05/26 1203 Eosinophils % (%) 0.4 05/26 1203 Basophils % (%) 0.2 05/26 1203 Neutrophils (%) 87 11/02 1203 Lymphocytes (Manual) (%) 9 05/26 1203 Lymphocytes # (K/mm3) 0.8 05/26 120 Monocytes (Manual) (%) 4 05/26 120 Monocytes # (K/mm3) 0.3 05/26 120 Eosinophils # (K/mm3) 0.0 05/26 120 Basophils # (K/MM3) 0.0 05/26 120 Platelet Estimate NORMAL 05/26 1203 PUBS MCHC (g/dl) 32.6 05/26 120 Immunology Antibody Screen NEGATIVE 05/26 1203 MCH (pg) 29.2 05/26 1203 Miscellaneous Miscellaneous Test POSITIVE 05/26 120 Misc Test Units BLOOD UNIT RELEASE 05/26 193 Other Body Source Stool Occult Blood POSITIVE 05/26 1220 Assessment findings Assessment Exam General appearance: no acute distress Cardiovascular: regular rate & rhythm Respiratory: no respiratory distress Patient plan Diagnoses: Antral ulcer with recent hemorrhage - hemodynamically stable with no sign of ongoing blood loss Plan: continue Carafate, continue proton pump inhibitor Additional data: Continue clear liquids today and possibly advance to full liquids tomorrow if he shows no sign of recurrent bleeding. at 0634
[2017-05-27 06:43] LABS: HEMOGLOBIN 11.5 g/dL (14.1-18.0); LYMPH # 1.6 K/mm3 (0.7-4.5); LYMPH % 21.8 % (10-50)
--- NOTE | 2017-05-27 07:23 | PHARMACY CLINIC NOTE ---
Patient Demographics Patient Demographics Admission date: 05/26/17 Date: 05/27/17 Time: 721 Allergies Coded Allergies: No Known Allergies (05/25/17) HEIGHT- FT: 5 IN: 10.00 K.544 VTE General Information Labs: Laboratory Tests 05/278 1203 Coagulation PT (9.4 - 11.8 SECONDS) 10.9 INR (0.9 - 1.1) 1.01 APTT (23.6 - 34.0 SECONDS) 24.0 Hematology Hgb (14.1 - 18.0 g/dL) 11.5 L 12.0 L 12.2 L Hct (42.0 - 52.0 %) 34.7 L 35.1 L 37.6 L Plt Count (142 - 424 K/mm3) 163 183 Disclaimer The following section includes nursing documentation that has been pulled in for pharmacy review. Patient's VTE score: 2 Patient's VTE Risk: VERY LOW RISK VTE prophylaxis [id number] VTE prophylaxis ordered? Yes Type of prophylaxis/treatment: BELL at 0722
[2017-05-27 08:00] VITALS: BP 110/60
--- NOTE | 2017-05-27 08:42 | ACUTE CARE PROGRESS NOTE (QUA) ---
Progress Notes Subjective Date 05/27/17 Time 0838 Note Patient is feeling much better today. He states his abdominal pain has resolved. He has had no vomiting or diarrhea. Surgery is following. Objective Findings Last VS-Temp:98.9 B/P:110/60 Pulse:68 Resp:20 SaO2:97 ROOM AIR Last weight lbs:193 oz:0 K.544 Method:Bed Scales Laboratory Tests 05/27/17 0606: Sodium 143, Potassium 3.4 L, Chloride 112 H, Carbon Dioxide 26, BUN 23 H, Creatinine 0.6 L, Estimated Creat Clear 152, Estimated GFR (MDRD) 135, Glucose 105, Calcium 8.1 L, WBC 7.5, RBC 3.87 L, Hgb 11.5 L, Hct 34.7 L, MCV 89.5, RDW 12.7, Plt Count 163, MPV 9.4, Gran % 71.0, Gran # 5.3, Lymphocytes % 21.8, Monocytes % 6.1, Eosinophils % 0.9, Basophils % 0.2, Lymphocytes # 1.6, Monocytes # 0.5, Eosinophils # 0.1, Basophils # 0.0, PUBS MCHC 33.2, MCH 29.7 05/26/172057: Hgb 12.0 L, Hct 35.1 L 05/26/17 1938: [facility] Test Units BLOOD UNIT RELEASE 05/26/17 1220: Stool Occult Blood POSITIVE 05/26/17 1203: MCH 29.2 05/26/17 1203: Sodium 142, Potassium 4.6, Chloride 110 H, Carbon Dioxide 27, BUN 36 H, Creatinine 0.7 L, Estimated Creat Clear 128, Estimated GFR (MDRD) 113, Glucose 125 H, Calcium 8.2 L, Total Bilirubin 0.5, AST 10 L, ALT 16, Alkaline Phosphatase 58, Creatine Kinase 37 L, CK-MB (CK-2) Rel Index 1.4, CK and CKMB Interp < 0.5, Troponin I 0.02, Total Protein 5.3 L, Albumin 2.7 L, Globulin 2.6, Albumin/Globulin Ratio 1.0 L, PT 10.9, INR 1.01, APTT 24.0, WBC 7.6, RBC 4.19 L, Hgb 12.2 L, Hct 37.6 L, MCV 89.7, RDW 12.3, Plt Count 183, MPV 9.4, Gran % 85.6 H, Gran # 6.5, Total Counted 100, Lymphocytes % 10.1, Monocytes % 3.7, Eosinophils % 0.4, Basophils % 0.2, Neutrophils 87 H, Lymphocytes (Manual) 9 L, Lymphocytes # 0.8, Monocytes (Manual) 4, Monocytes # 0.3, Eosinophils # 0.0, Basophils # 0.0, Platelet Estimate NORMAL, PUBS MCHC 32.6, Antibody Screen NEGATIVE, Miscellaneous Test POSITIVE Exam General appearance: alert, awake, no acute distress Cardiovascular: regular rate & rhythm Respiratory: clear to auscultation ABD: non-distended, normal bowel sounds, no rebound, soft, no tenderness, no guarding Extremities: no peripheral edema Assessment/Plan Problem List 1. GI bleed 2. Abdominal pain, acute, epigastric 3. Colitis 4. Stomach ulcer 5. Hypokalemia Plan: Patient improving. Surgery to follow. Will advance his diet today. Will start on potassium. This inpt stay is expected to cross 2 MNs from start of care Yes at 0841
[2017-05-27] MEDS ORDERED: HCTZ/TRIAMTEREN1 CAP PO (09:28)
[2017-05-27] MEDS ORDERED: GOOD NEIGHBOR100 M6 PO (09:30)
[2017-05-27 12:00] VITALS: BP 106/64
[2017-05-27 14:33] LABS: HEMOGLOBIN 11.2 g/dL (14.1-18.0)
[2017-05-27 16:00] VITALS: BP 100/61
[2017-05-27 19:58] VITALS: BP 113/66
[2017-05-27 20:15] VITALS: BP 113/66
[2017-05-28 01:03] VITALS: BP 99/55
[2017-05-28 04:12] VITALS: BP 102/56
[2017-05-28 07:02] LABS: HEMOGLOBIN 10.7 g/dL (14.1-18.0); LYMPH # 1.4 K/mm3 (0.7-4.5); LYMPH % 24.5 % (10-50)
[2017-05-28 07:57] VITALS: BP 105/63
[2017-05-28 08:44] VITALS: BP 105/63
[2017-05-28] MEDS ORDERED: K-DUR 20MEQ TA20 MEQ PO (09:08)
[2017-05-28] MEDS ORDERED: CARAFATE1 GM PO (09:10)
[2017-05-28] MEDS ORDERED: OMEPRAZOLE40 MG PO (09:12)
[2017-05-28] MEDS ORDERED: FERROUS SULFAT325 M1 PO (09:14)
--- NOTE | 2017-05-28 09:22 | ACUTE CARE PROGRESS NOTE (QUA) ---
Progress Notes Subjective Date 05/28/17 Time 0917 Note Mr. Stuart is stable and ready for discharge this morning. He has had a slight decline in H and H but this is to be expected. He continues with dark stools, this also to be expected. His vital signs are stable. It is noted that his H. pylori antibody was negative. He will be discharged today on omeprazole, ferrous sulfate, sucralfate in addition to his other medications. He will be seen in follow-up next week in [facility]. Objective Findings Laboratory Tests 05/28/17 0609: Sodium 142, Potassium 3.6, Chloride 109 H, Carbon Dioxide 27, BUN 15, Creatinine 0.6 L, Estimated Creat Clear 152, Estimated GFR (MDRD) 135, Glucose 96, Calcium 8.2 L, WBC 5.9, RBC 3.66 L, Hgb 10.7 L, Hct 32.8 L, MCV 89.6, RDW 12.7, Plt Count 156, MPV 9.0, Gran % 65.3, Gran # 3.8, Lymphocytes % 24.5, Monocytes % 5.9, Eosinophils % 4.0, Basophils % 0.2, Lymphocytes # 1.4, Monocytes # 0.4, Eosinophils # 0.2, Basophils # 0.0, PUBS MCHC 32.5, MCH 29.1 05/27/17 1405: Hgb 11.2 L, Hct 33.9 L Last VS-Temp:98.2 B/P:105/63 Pulse:69 Resp:20 SaO2:97 ROOM AIR Last weight lbs:193 oz:0 K.544 Method:Bed Scales Exam General appearance: alert, no acute distress Eyes: anicteric, PERRLA ENT: mucous membranes moist Cardiovascular: regular rate & rhythm Respiratory: clear to auscultation, good air movement ABD: soft, no tenderness, no organomegaly Extremities: no peripheral edema Musculoskeletal: equal muscle strength Skin: dry, intact Neuro: alert, intact, no deficit Reviewed: medications, vital signs, lab results, consult note Assessment/Plan Problem List 1. GI bleed 2. Abdominal pain, acute, epigastric 3. Stomach ulcer 4. Hypokalemia Patient condition Stable Plan: initiate discharge plan This inpt stay is expected to cross 2 MNs from start of care Yes at 0698
[2017-05-28 10:22] VITALS: BP 105/63
--- NOTE | 2017-05-30 21:28 | DISCHARGE SUMMARY STANDARD ---
Discharge Summary ([facility]2) Date of admission: 05/26/17 Date of discharge: 05/28/17 Problem List: 1. GI bleed 2. Abdominal pain, acute, epigastric 3. Stomach ulcer 4. Hypokalemia History of present illness: Mr. Stuart is a 67yo male who was seen in the ER the day prior to admission for epigastric pain. CT and labs were normal and he was sent home. The next morning he had one episode of bright red blood in the stool and one episode of hematemesis, also bright red. He had crampy abdominal pain, nonradiating. EMS was called. 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 He denied dizziness once he arrived at the ER but felt lightheaded. He denied any prior GI problems. He was admitted for a surgical consult. Exam on admission: General appearance: alert, awake, no acute distress Eyes: EOM's w/normal ROM, PERRLA ENT: mucous membranes moist, nose normal, pharynx normal Neck: non-tender, full range of motion, supple Cardiovascular: regular rate & rhythm Respiratory: clear to auscultation ABD: non-distended, normal bowel sounds, no rebound, soft, no guarding, ttp in the epigastric area Extremities: no peripheral edema Musculoskeletal: equal muscle strength, motor intact, sensation intact Skin: normal color Neuro: normal mood/affect, oriented, speech clear Hospital Course: He was seen by Dr. Gaviria who performed an EGD. It showed a large ulcer in the antrum. It was not actively bleeding, but had been bleeding, so he took biopsies and injected it with epinephrine. He started him on carafate, protonix , and clear liquids. The patient felt much better by the next day. He denied any pain and was no longer nauseated. His diet was advanced and his H&H was monitored. He had a slight decline in H and H but this was to be expected. He continued with dark stools, which was also to be expected. His vital signs were stable. It was noted that his H. pylori antibody was negative. He was stable to be discharged on omeprazole, ferrous sulfate, and sucralfate in addition to his other medications. He will be seen in follow-up at [facility]. Discharge medications: Stop taking the following medications: Aspirin (Aspir-Fouzia) 325 MG TABLET.DR ORAL DAILY Continue taking these medications: MECLIZINE HCL (Meclizine Hydrochloride) 12.5 MG TABLET 12.5 MILLIGRAM ORAL THREE TIMES A DAY NEEDED as needed for DIZZINESS Atorvastatin Calcium (Atorvastatin 40MG) 40 MG TABLET 40 MILLIGRAM ORAL EVERY OTHER DAY Hydrochlorothiazide W/Triamter (Triamterene-Hctz 37.5-25 MG Tb) 1 EACH TABLET 0.5 TABLET ORAL DAILY Qty = 45 UBIDECARENONE (Co Q-10) 100 MG CAPSULE 100 MILLIGRAM ORAL DAILY Start taking the following new medications: POTASSIUM CHL (Potassium Chloride) 20 MEQ TAB.ER.PRT 20 Milliequivalent ORAL DAILY Qty = 30 Refills = 3 Sucralfate (Carafate) 1 GM TABLET 1 GRAM ORAL WITH MEALS & AT BEDTIME Qty = 120 Refills = 3 Omeprazole (Omeprazole 40MG) 40 MG CAPSULE. 40 MILLIGRAM ORAL DAILY Qty = 30 Refills = 3 Ferrous Sulfate (Ferrous Sulfate 325MG) 325 MG TABLET 325 MILLIGRAM ORAL TWICE A DAY Qty = 100 Refills = 4 Disposition: F/U with: Sai Dawson MD Follow up: 4 DAYS Activity: Limited activity Diet: Continue same diet Discharge to: HOME Agency needed? N at 1272
== END 2017-05-28 10:25 | disposition home or self-care (01) | DRG 379 ==
LOC: ER 11:45 → 2ND 13:28 → ER 13:28 → 2ND 13:42
PROVIDERS: Emergency Medicine; Family Medicine; Surgery
PROC: 0DB78ZX Excision of Stomach, Pylorus, Via Natural or Artificial Opening Endoscopic, Diagnostic (ICD-10-PCS; principal; 2017-05-26 14:10)
DX: K25.0 Acute gastric ulcer with hemorrhage (principal); E87.6 Hypokalemia
CPT/HCPCS: G0328; J2405; P9016